=== PATIENT | female | born 1965 | race Caucasian/White ===

== ENCOUNTER 2019-08-07 12:27 | Outpatient (CLI) | payer MEDICARE, MEDICAID, SELFPAY ==
[2019-08-07 14:20] LABS: Basophils Absolute Auto 0.1 K/mm3 (0.0-0.1); Basophils Percent Auto 1.5 % (0.2-1.2); Eosinophils Absolute Auto 0.2 K/mm3 (0-0.3); Eosinophils Percent Auto 3.4 % (0-4.4); Hemoglobin 13.8 g/dL (12.0-15.0); Immature Granulocyte Absolute 0.02 K/mm3 (0.00-0.031); Immature Granulocyte Percent A 0.3 % (0-0.5); Lymphocytes Absolute Auto 1.69 K/mm3 (0.9-3.2); Lymphocytes Percent Auto 27.7 % (18.3-44.2); Mean Corpuscular HGB Conc 32.1 g/dl (32-36); Mean Corpuscular Hemoglobin 30.1 pg (26-34); Mean Corpuscular Volume 93.7 fl (80-100); Mean Platelet Volume 9.7 fl (7.4-10.4); Monocytes Absolute Auto 0.5 K/mm3 (0.1-0.6); Monocytes Percent Auto 7.7 % (2.6-8.5); Neutrophils Absolute Auto 3.6 K/mm3 (1.3-6.7); Neutrophils Percent Auto 59.4 % (45.5-73.1); Platelet Count Result 344 k/mm3 (150-375); Red Blood Count 4.59 M/mm3 (4.2-5.4); White Blood Count 6.1 K/mm3 (4.5-10.0)
[2019-08-07 14:33] LABS: Urine Cotinine NEGATIVE
[2019-08-07 14:34] LABS: Blood Urea Nitrogen 20 mg/dL (7-17); Calcium 9.4 mg/dL (8.4-10.2); Carbon Dioxide 33 mmol/L (22-30); Chloride 96 mmol/L (98-107); Estimated Glomerular Filt Rate > 60; Glucose 127 mg/dL (65-105); Hemoglobin A1C 5.6 % (<5.7); Potassium 3.2 mmol/L (3.4-5.0); Sodium 137 mmol/L (137-145)
== END 2019-08-07 12:28 | disposition home or self-care (01) ==
LOC: ANHSURGERY 12:35
PROVIDERS: Anesthesiology; PCP Family Medicine; Visit Provider Orthopaedic Surgery
DX: M17.11 Unilateral primary osteoarthritis, right knee (principal); Z79.899 Other long term (current) drug therapy
CPT/HCPCS: 36415; 80048; 80307; 83036; 85025; 87081

== ENCOUNTER 2019-08-27 00:57 | Day surgery (SDC) | payer MEDICARE, MEDICAID, SELFPAY ==
[2019-08-07 13:23] VITALS: BP 130/88; PULSE 98; RESP 20; TEMP 37.2; O2SAT 98; BMI 26.8
[2019-08-27] VITALS (9 sets, daily range): BP systolic 114–142; BP diastolic 52–83; PULSE 89–97; RESP 12–18; TEMP 36.3–36.9; O2SAT 94–100
--- NOTE | ~2019-08-27 | XR_ITS ---
EXAMINATION: XR knee RT 2V DATE: 08/27/2019 14:18 INDICATION: Right knee arthroplasty. Postop. TECHNIQUE: 2 views of right knee were obtained. COMPARISON: Right knee radiographs 05/24/2019 FINDINGS: There is a total right knee arthroplasty with patellar resurfacing in near-anatomic alignme nt. No fracture. There is gas in the knee joint and soft tissues, consistent with recent surgery. IMPRESSION: 1. Total right knee arthroplasty in near-anatomic alignment. Reviewed, dictated and finalized at location A. TER MARINE
--- NOTE | 2019-08-27 09:46 | WPDANESEPPF ---
Anes - Initial Pre Proc Eval Procedure: Operation Date: 08/27/19 10:30 Proposed Procedures p Right Total Knee Arthroplasty - Gucci Wilkinson MD Date/Time: 08/27/19 09:46 Surgeon: Gucci Wilkinson MD Pre Op Diagnosis: Right Knee OA Patient Data Age: 54 Gender: F Height: 1.57 m Weight: 65.6 kg Last Vital Signs Temp 37.2 C 08/07/19 13:23 Pulse 98 08/07/19 13:23 Resp 20 08/07/19 13:23 BP 130/88 08/07/19 13:23 Pulse Ox 98 08/07/19 13:23 Allergies Allergy/AdvReac Type Severity Reaction Status Date / Time gadobenic acid AdvReac Other- Verified 08/07/19 13:21 [From contrast - MRI] RASH/HIVES iohexol AdvReac Other-RASH/ Verified 08/07/19 13:21 [From contrast - CT, X-RAY] HIVES Home Medications Medication Instructions Recorded Confirmed Type alprazolam 0.25 mg tablet 0.25 mg PO DAILY 08/07/19 08/16/19 History chlorthalidone 25 mg tablet 25 mg PO DAILY 08/07/19 08/16/19 History famotidine 10 mg tablet 10 mg PO DAILY 08/07/19 08/16/19 History ECG: Date of Service: 06/27/19 Procedure(s): CA 12 lead EKG Accession Number(s): [id number] cc: ~ Measurements Intervals [place] Rate: 79 P: 71 NC: 184 QRS: -9 QRSD: 103 T: 40 QT: 371 QTc: 427 Interpretive Statements SINUS RHYTHM POSSIBLE RIGHT ATRIAL ENLARGEMENT POSSIBLE LEFT ATRIAL ENLARGEMENT BORDERLINE ECG Electronically Signed On 06-27-2019 14:17:41 [employer]UEPRINT PROCESSOR by Harjeet Villavicencio D.O. Dictated By: Harjeet Villavicencio DO 06/27/19 1236 Patient hx anesthesia problems: none Family hx anesthesia problems: none [facility] Social History Social History Smoking status: Former smoker Smoking end date: 07/03/12 Alcohol intake: current Anes - Eval Final PreProcedure Day of Procedure 08/27/19 09:46 Patient weight: overweight Heart: regular rate and rhythm Lungs: clear to auscultation and normal air movement Airway: Mallampati scale class II Neurological: alert and oriented Last oral intake: >/= 8 hours ASA classification: III Emergent: no Anesthetic plan: proceed Anesthesia type and monitoring: general LMA Informed Consent: The patient's anesthetic plan and its attendant risks and benefits were discussed with the patient/family/POA. Questions were solicited and answers provided to the satisfaction of the patient/family/POA.
--- NOTE | 2019-08-27 09:50 | WPDANESPNB ---
Anes - Peripheral Nerve Block Date/Time: 08/27/19 09:50 I have discussed with the patient/family/POA the placement of a peripheral nerve block for post-operative pain management, including associated risks, benefits, complications, and side effects. Alternative methods of post-operative analgesia were detailed. Questions were solicited and answers provided to the satisfaction of the patient/family/POA. Time-Out: A pre-procedural Time-Out was completed immediately before starting the procedure and confirmed: Patient Identification, Site, Procedure, Patient Position and the Availability of Requisite Equipment. Clinical Indications: Acute post-operative pain management requested by the operative surgeon. Nerve Block Insertion Note Anes-nerve block: adductor canal right Patient position: supine Skin prep: chlorhexidine Needle: 22 gauge, stimulating, insulated echogenic needle. Needle length: 80 mm Technique: ultrasound Technique comment: in plane Injectate: bupivacaine 0.5% with epi 5 mcg/ml (30cc) Observations: tolerated well Complications: none Procedure start time:: 1135 Procedure end time:: 1140
[2019-08-27] MEDS: LACTATED RINGERS 1,000 ML 30 ML IV CONT ×2 (10:00→14:10)
--- NOTE | 2019-08-27 11:25 | WPDHPUPDATE1 ---
History and Physical Update Update Date/Time: 08/27/19 11:25 History and Physical has been reviewed, including an updated exam of the patient. There are NO changes in the patient's condition. Risks, benefits, and alternatives have been discussed and questions answered. Patient agrees to proceed with procedure.
[2019-08-27] MEDS: ceFAZolin 2 GM/D5W 50 ML 2 GM/50 ML BAG IVPB (12:02)
[2019-08-27] MEDS: GENTAMICIN BONE CEMENT REFOBACIN 1 EACH TOPICAL (13:17)
--- NOTE | 2019-08-27 14:15 | SUR.PHASEI ---
1410 radiology at bedside to do xrays
--- NOTE | 2019-08-27 14:57 | SUR.PHASEI ---
3290 sbar faxed to floor. family updated and sent to room
--- NOTE | 2019-08-27 15:04 | PCCCNOTE ---
Received call from Dr Wilkinson's office. Pt is intended to be discharged on X[place]. 'Free trial card' given to PACU nurse with instruction to place on chart and to verify with Dr Wilkinson before giving to patient at discharge.
--- NOTE | 2019-08-27 15:10 | PC.NURSE ---
This patient, Manuel Olson, was admitted to 3 [facility] Surg Room 312-01. Patient/family oriented to hospital policies and general routines including ID bracelet, bed and alarms, visiting hours, pain management, procedures, bathroom and other care routines, personal items, smoking policy, room service/diet, and visiting hours. Valuables list has been completed. Information on how to activate the Rapid Response Team has been discussed. Patient/Family are encouraged to report perceived risks to care and to ask questions if they do not understand what they are told or what they should do.
[2019-08-27] MEDS: SODIUM CHLORIDE 0.9% IV 1,000 ML 125 ML IV CONT (15:55)
[2019-08-27] MEDS: DOCUSATE SODIUM 100 MG CAPSULE PO (16:42)
[2019-08-27] MEDS: MELOXICAM 7.5 MG TABLET PO (16:42)
--- NOTE | 2019-08-27 18:07 | P.OP_ITS ---
Procedure Note - Detailed Date of procedure: 08/27/19 Pre-op diagnosis: Right Knee OA Post-op diagnosis: same Procedure performed: Total knee arthroplasty, right Implants: [place] Triathlon size 3 press-fit femur, size 3 cemented low-profile tibia, 11mm CR polyethylene insert, 32mm asymmetric metal backed Tritanium patellar component. Anesthesia: GETA and regional (subsartorial nerve block) Surgeon: Gucci Wilkinson MD Estimated blood loss (mL): 100 Drains: No Complications: None Condition: stable Disposition: PACU Findings: Good bone quality. Moderate medial release required. Femur placed at 3? external rotation. 5 degree valgus cut. OPERATIVE DETAILS: The patient was given a nerve block preoperatively, and then brought to the operating room. A general anesthetic was administered. The leg was prepped and draped in the usual sterile fashion. The limb was elevated and the tourniquet inflated to 300 mmHg during initial exposure. A longitudinal incision was created along the medial border of the patella and patellar tendon, and a minimally invasive optimized mid-vastus approach to the knee was performed. A moderate medial release was taken. The knee was then flexed. The osteophytes were carefully removed. The intramedullary guide was placed in the femoral canal. The distal femoral resection was then taken with the oscillating saw. The collateral ligaments were carefully protected. The tibia was carefully exposed. The jig was applied, and the proximal tibia was resected according to preoperative plan. The knee was balanced in extension. Appropriate releases were taken where needed. The anterior cruciate ligament and meniscal remnants were removed. The posterior cruciate ligament was preserved. The patella was measured. Patellar resection was carried out with the oscillating saw. The lug holes drilled. The femur was sized and rotation assessed using a combination of gap balancing, posterior referencing, and the AP axis. The 4 in 1 cutting block was used to finish the femoral cuts after equal gaps were assured. The lug holes were drilled. The osteophytes were carefully removed from the back of the knee. The knee was copiously irrigated with antibiotic solution periodically throughout the procedure. The meniscal remnants were removed. The spacer block was used to confirm equal flexion and extension gaps. Further releases were performed as needed. The tibia was sized and broached. The bony surfaces were prepared for cementing with pulsatile lavage. The real tibial component was cemented into position followed by press fitting the femoral comp onent. Excess cement was carefully removed. The patella component was press-fit. Patellar tracking was carefully assessed. No additional releases were required. The wound was closed with #1 Vycril suture, #2 Quill suture, 0-Quill suture, and 2-0 Quill suture followed by Steri-Strips. A sterile bulky dressing was applied. Meticulous hemostasis was maintained throughout the procedure. There were no complications. The patient was extubated and brought to the recovery room in stable condition after the application of sterile dressing with Demetrio bandage.
[2019-08-28 02:00] VITALS: BP 116/58; PULSE 89; RESP 18; TEMP 36.8; O2SAT 98
[2019-08-28 05:57] LABS: Basophils Absolute Auto 0.1 K/mm3 (0.0-0.1); Basophils Percent Auto 0.6 % (0.2-1.2); Eosinophils Percent Auto 0.2 % (0-4.4); Hematocrit 35.6 % (37.0-47.0); Hemoglobin 11.6 g/dL (12.0-15.0); Immature Granulocyte Absolute 0.05 K/mm3 (0.00-0.031); Immature Granulocyte Percent A 0.4 % (0-0.5); Lymphocytes Absolute Auto 1.59 K/mm3 (0.9-3.2); Lymphocytes Percent Auto 13.1 % (18.3-44.2); Mean Corpuscular HGB Conc 32.6 g/dl (32-36); Mean Corpuscular Hemoglobin 30.8 pg (26-34); Mean Corpuscular Volume 94.4 fl (80-100); Mean Platelet Volume 9.9 fl (7.4-10.4); Monocytes Percent Auto 8.3 % (2.6-8.5); Neutrophils Absolute Auto 9.4 K/mm3 (1.3-6.7); Neutrophils Percent Auto 77.4 % (45.5-73.1); Platelet Count Result 291 k/mm3 (150-375); Red Blood Count 3.77 M/mm3 (4.2-5.4); Red Cell Distribution Width 12.8 % (11.5-14.5); White Blood Count 12.1 K/mm3 (4.5-10.0)
[2019-08-28 06:00] VITALS: BP 108/54; PULSE 85; RESP 18; TEMP 36.7; O2SAT 98
[2019-08-28 06:19] LABS: Blood Urea Nitrogen 14 mg/dL (7-17); Calcium 8.3 mg/dL (8.4-10.2); Carbon Dioxide 26 mmol/L (22-30); Chloride 101 mmol/L (98-107); Estimated CRCL calculation 79 ml/min; Estimated Glomerular Filt Rate > 60; Glucose 98 mg/dL (65-105); Potassium 4.1 mmol/L (3.4-5.0); Sodium 137 mmol/L (137-145)
[2019-08-28] MEDS: MELOXICAM 7.5 MG TABLET PO (09:08)
[2019-08-28] MEDS: CHLORTHALIDONE 25 MG TABLET PO (09:09)
[2019-08-28] MEDS: FAMOTIDINE 10 MG TABLET PO (09:10)
[2019-08-28] MEDS: DOCUSATE SODIUM 100 MG CAPSULE PO (09:10)
[2019-08-28] MEDS: RIVAROXABAN 10 MG TABLET PO (09:12)
[2019-08-28] MEDS: ALPRAZOLAM 0.25 MG TABLET PO (09:15)
[2019-08-28 10:11] VITALS: O2SAT 98
--- NOTE | 2019-08-28 13:22 | P.DS_ITS ---
DS: Diagnosis Admitting Diagnosis Admitting Diagnosis: Unilateral primary osteoarthritis, right knee Discharge Diagnosis (1) History of arthroplasty of right knee: Code(s): Z96.651 - Presence of right artificial knee joint Status: Acute DS: Summary Hospital Course Reason for hospitalization: Total knee arthroplasty. Hospital Course: Tolerated surgery well. Progressed appropriately with therapy. Status at Discharge Functional status at discharge: uses cane/walker Time Spent with Patient Time attestation: Total time spent providing and/or coordinating discharge services: Exam Const: General: no acute distress Resp: Effort & Inspection: normal respiratory effort Skin: Other: Wound healing well. Mepilex dressing intact. No hematoma or drainage. Neuro: Motor exam (neuro): 5/5 motor strength present throughout Sensory Exam: normal sensation Psych: Mental Status: mental status grossly normal Speech and movement: Normal speech and movement present DS: Data Data Completed and Pending Labs on day of discharge: Labs from last 24 hours 08/28/19 08/28/19 05:21 05:21 WBC 12.1 H RBC 3.77 L Hgb 11.6 L Hct 35.6 L MCV 94.4 MCH 30.8 MCHC 32.6 RDW 12.8 Plt Count 291 MPV 9.9 Immature Gran % (Auto) 0.4 Neut % (Auto) 77.4 H Lymph % (Auto) 13.1 L [place] % (Auto) 8.3 Eos % (Auto) 0.2 Baso % (Auto) 0.6 Lymph # (Auto) 1.59 [place] # (Auto) 1.0 H Eos # (Auto) 0.0 Baso # (Auto) 0.1 Abs Immat Gran (auto) 0.05 H Absolute Neuts (auto) 9.4 H Absolute Nucleated RBC 0.0 Nucleated RBC % 0.0 Sodium 137 Potassium 4.1 Chloride 101 Carbon Dioxide 26 BUN 14 D Creatinine 0.60 L Estim Creat Clear Calc 79 Estimated GFR > 60 Glucose 98 Calcium 8.3 L Discharge Plan Discharge Patient Disposition: Home, Self-Care Discharge Instructions: See instruction sheet. Patient Instructions: Rivaroxaban (By mouth), Pain Management (DC), Precautions after Total Joint Replacement Surgery (DC), Knee Replacement (DC) Follow-up/Referrals: Gucci Wilkinson MD [Physician] - Discharge Medications: New oxycodone-acetaminophen 5-325 mg tablet 1 - 2 tablet PO Q4-6H MDD 8 tablets PRN (Reason: pain) Qty: 40 RF: 0 Xarelto 10 mg tablet 10 mg PO DAILY Qty: 30 RF: 0 Continued chlorthalidone 25 mg tablet 25 mg PO DAILY RF: 0 famotidine 10 mg tablet 10 mg PO DAILY RF: 0 alprazolam [Xanax] 0.25 mg tablet 0.25 mg PO DAILY RF: 0 Quality VTE Prophylaxis VTE prophylaxis: mechanical ordered (MARTÍN lugo and Allie)
--- NOTE | 2019-08-28 13:44 | P.PNAN_ITS ---
Anes - Prog Note Post-Op Date/Time: 08/28/19 13:44 Cardiovascular status: normal Respiratory status: normal Airway patency: baseline Mental status: baseline Post-Op hydration status: normal Vital Signs: Last Vital Signs Temp 36.7 C 08/28/19 06:00 Pulse 85 08/28/19 06:00 Resp 18 08/28/19 06:00 BP 108/54 L 08/28/19 06:00 Pulse Ox 98 08/28/19 10:11 Pain Score (VAS): 0/10. Patient resting up to bedside chair at time of assessment, appears comfortable. Support person at bedside. I/O: Intake & Output 08/27/19 08/28/19 08/28/19 23:59 07:59 15:59 Intake Total 1016 400 760 Output Total 600 Balance 1016 -200 760 Laboratory Tests 08/28/19 05:21 08/28/19 05:21 08/28/19 08/28/19 05:21 05:21 WBC 12.1 H RBC 3.77 L Hgb 11.6 L Hct 35.6 L MCV 94.4 MCH 30.8 MCHC 32.6 RDW 12.8 Plt Count 291 MPV 9.9 Immature Gran % (Auto) 0.4 Neut % (Auto) 77.4 H Lymph % (Auto) 13.1 L [place] % (Auto) 8.3 Eos % (Auto) 0.2 Baso % (Auto) 0.6 Lymph # (Auto) 1.59 [place] # (Auto) 1.0 H Eos # (Auto) 0.0 Baso # (Auto) 0.1 Abs Immat Gran (auto) 0.05 H Absolute Neuts (auto) 9.4 H Absolute Nucleated RBC 0.0 Nucleated RBC % 0.0 Sodium 137 Potassium 4.1 Chloride 101 Carbon Dioxide 26 BUN 14 D Creatinine 0.60 L Estim Creat Clear Calc 79 Estimated GFR > 60 Glucose 98 Calcium 8.3 L Post-procedural complaints: none Patient Feedback: Patient satisfied with anesthetic care.
== END 2019-08-28 15:00 | disposition home or self-care (01) ==
LOC: ANHSURGERY 08:16 → ANH3MEDSUR 15:21
PROVIDERS: PCP Family Medicine; Visit Provider Orthopaedic Surgery
PROC: (CPT 27447; principal; 2019-08-27 10:30)
DX: M17.11 Unilateral primary osteoarthritis, right knee (principal); G89.18 Other acute postprocedural pain; I10 Essential (primary) hypertension; J44.9 Chronic obstructive pulmonary disease, unspecified; K21.9 Gastro-esophageal reflux disease without esophagitis; F41.9 Anxiety disorder, unspecified; Z85.118 Personal history of other malignant neoplasm of bronchus and lung; Z86.718 Personal history of other venous thrombosis and embolism; Z87.891 Personal history of nicotine dependence
CPT/HCPCS: 27447; 64447; 36415; 73560; 80048; 85025; 86850; 86900; 86901; 97116; 97161; 97165; A9270; C1713; C1776; J0131; J0171; J0690; J1100; J1170; J1885; J2250; J2270; J2405; J2704; J2795; J3010; J7030; J7120

== ENCOUNTER 2019-11-19 12:20 | Outpatient (CLI) | payer MEDICARE, MEDICAID, SELFPAY ==
--- NOTE | 2019-11-19 | ECG_ITS ---
Measurements Intervals [place] Rate: 86 P: 72 [place]: 186 QRS: -5 QRSD: 105 T: 53 QT: 370 QTc: 445 Interpretive Statements SINUS RHYTHM POSSIBLE RIGHT ATRIAL ENLARGEMENT LEFT ATRIAL ENLARGEMENT BORDERLINE ECG Electronically Signed On 11-19-2019 13:40:07 CDT by Harjeet Villavicencio D.O.
[2019-11-19 13:10] LABS: Albumin Level 4.3 g/dL (3.5-5.1); Estimated Glomerular Filt Rate > 60
== END 2019-11-19 12:21 | disposition home or self-care (01) ==
PROVIDERS: Visit Provider Orthopaedic Surgery
DX: M17.12 Unilateral primary osteoarthritis, left knee (principal); R94.31 Abnormal electrocardiogram [ECG] [EKG]
CPT/HCPCS: 36415; 82040; 82565; 93005

== ENCOUNTER 2019-12-18 11:37 | Outpatient (CLI) | payer MEDICARE, MEDICAID, SELFPAY ==
[2019-12-18 12:52] LABS: Basophils Absolute Auto 0.1 K/mm3 (0.0-0.1); Basophils Percent Auto 0.9 % (0.2-1.2); Eosinophils Absolute Auto 0.3 K/mm3 (0-0.3); Eosinophils Percent Auto 4.4 % (0-4.4); Hematocrit 41.7 % (37.0-47.0); Hemoglobin 13.6 g/dL (12.0-15.0); Immature Granulocyte Absolute 0.04 K/mm3 (0.00-0.031); Immature Granulocyte Percent A 0.6 % (0-0.5); Lymphocytes Absolute Auto 1.76 K/mm3 (0.9-3.2); Lymphocytes Percent Auto 25.7 % (18.3-44.2); Mean Corpuscular HGB Conc 32.6 g/dl (32-36); Mean Corpuscular Hemoglobin 29.2 pg (26-34); Mean Corpuscular Volume 89.7 fl (80-100); Mean Platelet Volume 9.5 fl (7.4-10.4); Monocytes Absolute Auto 0.6 K/mm3 (0.1-0.6); Monocytes Percent Auto 9.2 % (2.6-8.5); Neutrophils Absolute Auto 4.1 K/mm3 (1.3-6.7); Neutrophils Percent Auto 59.2 % (45.5-73.1); Platelet Count Result 371 k/mm3 (150-375); Red Blood Count 4.65 M/mm3 (4.2-5.4); Red Cell Distribution Width 13.4 % (11.5-14.5); White Blood Count 6.9 K/mm3 (4.5-10.0)
[2019-12-18 13:00] LABS: Urine Cotinine NEGATIVE
[2019-12-18 13:01] LABS: Hemoglobin A1C 5.8 % (<5.7)
[2019-12-18 13:04] LABS: Blood Urea Nitrogen 22 mg/dL (7-17); Calcium 9.1 mg/dL (8.4-10.2); Carbon Dioxide 33 mmol/L (22-30); Chloride 99 mmol/L (98-107); Estimated Glomerular Filt Rate > 60; Glucose 137 mg/dL (65-105); Potassium 3.5 mmol/L (3.4-5.0); Sodium 137 mmol/L (137-145)
== END 2019-12-18 11:38 | disposition home or self-care (01) ==
PROVIDERS: PCP Family Medicine; Visit Provider Orthopaedic Surgery
DX: M17.12 Unilateral primary osteoarthritis, left knee (principal); Z01.812 Encounter for preprocedural laboratory examination; Z51.81 Encounter for therapeutic drug level monitoring; Z79.899 Other long term (current) drug therapy
CPT/HCPCS: 36415; 80048; 80307; 83036; 85025; 87081

== ENCOUNTER 2020-01-04 06:08 | Outpatient (CLI) | payer MEDICARE, MEDICAID, SELFPAY ==
[2020-01-04 17:27] LABS: SARS-CoV-2 RNA PCR Negative
== END 2020-01-04 06:09 | disposition home or self-care (01) ==
LOC: ANHCOVIDDT 06:09
PROVIDERS: Visit Provider Orthopaedic Surgery
DX: Z01.812 Encounter for preprocedural laboratory examination (principal); Z20.828 Contact with and (suspected) exposure to other viral communicable diseases
CPT/HCPCS: 87635; C9803; U0003

== ENCOUNTER 2020-01-07 02:57 | Day surgery (SDC) | payer MEDICARE, MEDICAID, SELFPAY ==
[2019-12-18 12:29] VITALS: BP 112/51; PULSE 96; RESP 16; TEMP 36.8; BMI 26.6
[2020-01-07] VITALS (13 sets, daily range): BP systolic 88–134; BP diastolic 43–87; PULSE 84–99; RESP 12–20; TEMP 36.3–36.7; O2SAT 93–100; BMI 27.2
--- NOTE | ~2020-01-07 | XR_ITS ---
EXAMINATION: XR knee LT 2V DATE: 01/07/2020 09:43 INDICATION: Total left knee arthroplasty. Postop. TECHNIQUE: 2 views of left knee were obtained. COMPARISON: Left knee radiograph 12/18/2019, 05/24/2019 FINDINGS: There is a total left knee arthroplasty with patellar resurfacing. Tibia demonstrate 7 degr ees posterior attenuation with respect to the tibial component. No fracture. There is gas in the knee joint and soft tissues, consistent with recent surgery. A curvilinear density in the shape of a wire overlies the soft tissues posterior to the proximal tibia, unchanged from 05/24/2019. IMPRESSION: 1. New total left knee arthroplasty. 2. Chronic radiopaque foreign body in the shape of a wire in the soft tissues posterior to the proxim al tibia. Reviewed, dictated and finalized at location A. IMPRESSION: 1. New total left knee arthroplasty. 2. Chronic radiopaque foreign body in the shape of a wire in the soft tissues p osterior to the proximal tibia.
[2020-01-07] MEDS: LACTATED RINGERS 1,000 ML 30 ML IV CONT ×2 (06:25→09:25)
[2020-01-07] MEDS: TRANEXAMIC ACID 1,000MG/ISO100 1,000 MG/100 ML BAG 200 MG IVPB (06:40)
--- NOTE | 2020-01-07 06:42 | WPDANESEPPF ---
Anes - Initial Pre Proc Eval Procedure: Operation Date: 01/07/20 07:30 Proposed Procedures p Left Total Knee Arthroplasty - Gucci Wilkinson MD Date/Time: 01/07/20 06:42 Surgeon: Gucci Wilkinson MD Pre Op Diagnosis: left knee OA Patient Data Age: 54 Gender: F Height: 5 ft 3 in Weight: 68.1 kg Last Vital Signs Temp 36.8 C 12/18/19 12:29 Pulse 96 12/18/19 12:29 Resp 16 12/18/19 12:29 BP 112/51 L 12/18/19 12:29 Allergies Allergy/AdvReac Type Severity Reaction Status Date / Time gadobenic acid AdvReac Hives Verified 01/07/20 06:41 [From contrast - MRI] iohexol AdvReac Hives Verified 01/07/20 06:41 [From contrast - CT, X-RAY] Home Medications Medication Instructions Recorded Confirmed Type alprazolam 0.25 mg tablet 0.25 mg PO PRN PRN 08/07/19 01/07/20 History chlorthalidone 25 mg tablet 25 mg PO DAILY 08/07/19 01/07/20 History famotidine 10 mg tablet 10 mg PO DAILY 08/07/19 01/07/20 History multivitamin [Multiple Vitamins] 1 tablet PO DAILY 12/18/19 01/07/20 History Patient hx anesthesia problems: none Family hx anesthesia problems: none PMFSH Past Medical History Medical History Anxiety COPD (chronic obstructive pulmonary disease) History of DVT (deep vein thrombosis) History of lung cancer Hypertension Mild acid reflux Osteoarthritis of left knee Osteoarthritis of right knee Surgical History Surgical History 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 History of appendectomy History of arthroplasty of right knee History of evisceration of eye Status post trigger finger release Family History Family History Other Family history of arthritis Family history of malignant neoplasm Social History Social History Smoking packs per day: 1 Smoking cigarettes per day: 20.0 Smoking status: Former smoker Tobacco type: cigarettes Second hand tobacco smoke exposure: Yes Smoking end date: 09/02/15 Alcohol intake: current Drinks per week: 1 Substance use: never Gender identity (if verbalized by the patient): Female Spiritual care concerns: No Agree to blood products: Yes Anes - Eval Final PreProcedure Day of Procedure 01/07/20 06:42 Patient weight: overweight Heart: regular rate and rhythm Lungs: decreased breath sounds Airway: Mallampati scale class II Neurological: alert and oriented Last oral intake: >/= 8 hours ASA classification: III Emergent: no Anesthetic plan: proceed Anesthesia type and monitoring: general LMA and standard monitoring Informed Consent: The patient's anesthetic plan and its attendant risks and benefits were discussed with the patient/family/POA. Questions were solicited and answers provided to the satisfaction of the patient/family/POA.
--- NOTE | 2020-01-07 07:06 | WPDHPUPDATE1 ---
History and Physical Update Update Date/Time: 01/07/20 07:06 History and Physical has been reviewed, including an updated exam of the patient. There are NO changes in the patient's condition. Risks, benefits, and alternatives have been discussed and questions answered. Patient agrees to proceed with procedure.
[2020-01-07] MEDS: ceFAZolin 2 GM/D5W 50 ML 2 GM/50 ML BAG IVPB (07:21)
--- NOTE | 2020-01-07 07:23 | WPDANESPNB ---
Anes - Peripheral Nerve Block Date/Time: 01/07/20 07:23 I have discussed with the patient/family/POA the placement of a peripheral nerve block for post-operative pain management, including associated risks, benefits, complications, and side effects. Alternative methods of post-operative analgesia were detailed. Questions were solicited and answers provided to the satisfaction of the patient/family/POA. Time-Out: A pre-procedural Time-Out was completed immediately before starting the procedure and confirmed: Patient Identification, Site, Procedure, Patient Position and the Availability of Requisite Equipment. Clinical Indications: Acute post-operative pain management requested by the operative surgeon. Nerve Block Insertion Note Anes-nerve block: adductor canal left Patient position: supine Skin prep: chlorhexidine Needle: 22 gauge, stimulating, insulated echogenic needle. Needle length: 80 mm Technique: ultrasound Technique comment: mid 2mg, [id number] Injectate: bupivacaine 0.5% with epi 5 mcg/ml (30ml) and dexamethasone (mg) (4) Observations: tolerated well Complications: none Procedure start time:: 711 Procedure end time:: 719
[2020-01-07] MEDS: GENTAMICIN BONE CEMENT REFOBACIN 1 EACH TOPICAL (08:07)
--- NOTE | 2020-01-07 09:39 | SUR.PHASEI ---
Radiology here; xray Left knee
--- NOTE | 2020-01-07 09:44 | SUR.PHASEI ---
Updated sig other Chris Agustin [phone] and gave him pt's room number
--- NOTE | 2020-01-07 09:49 | PM.PROC ---
Procedure Note - Detailed Date of procedure: 01/07/20 Pre-op diagnosis: left knee OA Post-op diagnosis: same Procedure performed: Total knee arthroplasty, left. Implants: [place] Triathlon size 2 press-fit femur, size 2 cemented low-profile tibia, 11 mm polyethylene insert, 32 mm asymmetric metal backed Tritanium patellar component. Anesthesia: GETA and regional (subsartorial nerve block) Surgeon: Gucci Wilkinson MD Drains: No Complications: None Findings: OPERATIVE DETAILS: The patient was given a nerve block preoperatively, and then brought to the operating room. A general anesthetic was administered. The leg was prepped and draped in the usual sterile fashion. The limb was elevated and the tourniquet inflated to 300 mmHg during initial exposure. A longitudinal incision was created along the medial border of the patella and patellar tendon, and a minimally invasive optimized mid-vastus approach to the knee was performed. A mild medial release was taken. The knee was then flexed. The osteophytes were carefully removed. The intramedullary guide was placed in the femoral canal. The distal femoral resection was then taken with the oscillating saw. The collateral ligaments were carefully protected. The tibia was carefully exposed. The jig was applied, and the proximal tibia was resected according to preoperative plan. The knee was balanced in extension. Appropriate releases were taken where needed. The anterior cruciate ligament and meniscal remnants were removed. The posterior cruciate ligament was preserved. The patella was measured. Patellar resection was carried out with the oscillating saw. The lug holes drilled. The femur was sized and rotation assessed using a combination of gap balancing, posterior referencing, and the AP axis. The 4 in 1 cutting block was used to finish the femoral cuts after equal gaps were assured. The lug holes were drilled. The osteophytes were carefully removed from the back of the knee. The knee was copiously irrigated with antibiotic solution periodically throughout the procedure. The meniscal remnants were removed. The spacer block was used to confirm equal flexion and extension gaps. Further releases were performed as needed. A modest needle release was performed medially. The final balance was excellent. The tibia was sized and broached. The bony surfaces were prepared for cementing with pulsatile lavage. The real tibial component was cemented into position followed by press fitting the femoral component. Excess cement was carefully removed. The patella component was press-fit. Patellar tracking was carefully assessed. No additional releases were required. The wound was closed with #1 Vycril suture, #2 Quill suture, 0-Quill suture, and 2-0 Quill suture followed by Steri-Strips. A sterile bulky dressing was applied. Meticulous hemostasis was maintained throughout the procedure. There were no complications. The patient was extubated and brought to the recovery room in stable condition after the application of sterile dressing with Demetrio bandage.
[2020-01-07] MEDS: SODIUM CHLORIDE 0.9% IV 1,000 ML 125 ML IV CONT (13:35)
[2020-01-07] MEDS: KETOROLAC 15 MG/ML VIAL (*BKC) IV PUSH ×2 (14:54→21:18)
[2020-01-07] MEDS: DOCUSATE SODIUM 100 MG CAPSULE PO (17:53)
[2020-01-08 01:25] VITALS: BP 108/50; PULSE 89; RESP 20; TEMP 36.1; O2SAT 99
[2020-01-08] MEDS: KETOROLAC 15 MG/ML VIAL (*BKC) IV PUSH ×2 (02:52→08:56)
[2020-01-08 05:25] VITALS: BP 127/57; PULSE 82; RESP 20; TEMP 36.1; O2SAT 98
[2020-01-08 05:28] LABS: Basophils Absolute Auto 0.1 K/mm3 (0.0-0.1); Basophils Percent Auto 0.4 % (0.2-1.2); Eosinophils Percent Auto 0.1 % (0-4.4); Hematocrit 34.4 % (37.0-47.0); Hemoglobin 11.2 g/dL (12.0-15.0); Immature Granulocyte Absolute 0.07 K/mm3 (0.00-0.031); Immature Granulocyte Percent A 0.5 % (0-0.5); Lymphocytes Absolute Auto 2.04 K/mm3 (0.9-3.2); Lymphocytes Percent Auto 14.4 % (18.3-44.2); Mean Corpuscular HGB Conc 32.6 g/dl (32-36); Mean Corpuscular Hemoglobin 29.9 pg (26-34); Mean Corpuscular Volume 91.7 fl (80-100); Mean Platelet Volume 9.3 fl (7.4-10.4); Monocytes Absolute Auto 1.1 K/mm3 (0.1-0.6); Monocytes Percent Auto 7.5 % (2.6-8.5); Neutrophils Percent Auto 77.1 % (45.5-73.1); Platelet Count Result 304 k/mm3 (150-375); Red Blood Count 3.75 M/mm3 (4.2-5.4); Red Cell Distribution Width 13.4 % (11.5-14.5); White Blood Count 14.2 K/mm3 (4.5-10.0)
[2020-01-08 05:43] LABS: Blood Urea Nitrogen 14 mg/dL (7-17); Calcium 8.4 mg/dL (8.4-10.2); Carbon Dioxide 26 mmol/L (22-30); Chloride 106 mmol/L (98-107); Estimated CRCL calculation 83 ml/min; Estimated Glomerular Filt Rate > 60; Glucose 102 mg/dL (65-105); Potassium 3.9 mmol/L (3.4-5.0); Sodium 137 mmol/L (137-145)
[2020-01-08 06:00] VITALS: BP 127/57; PULSE 98; RESP 20; TEMP 36.1; O2SAT 98
[2020-01-08] MEDS: DOCUSATE SODIUM 100 MG CAPSULE PO (08:56)
[2020-01-08] MEDS: CHLORTHALIDONE 25 MG TABLET PO (08:56)
[2020-01-08] MEDS: FAMOTIDINE 10 MG TABLET PO (08:56)
[2020-01-08] MEDS: MULTIVITAMINS THERAPEUTIC TAB (*BKC) 1 TABLET PO (08:57)
[2020-01-08 09:25] VITALS: BP 104/42; PULSE 60; RESP 14; TEMP 36.6; O2SAT 98
[2020-01-08 09:42] VITALS: O2SAT 98
--- NOTE | 2020-01-08 09:54 | P.PNAN_ITS ---
Anes - Prog Note Post-Op Date/Time: 01/08/20 09:54 Cardiovascular status: normal Respiratory status: normal Airway patency: baseline Mental status: baseline Post-Op hydration status: normal Vital Signs: Last Vital Signs Temp 97 F L 01/08/20 06:00 Pulse 98 01/08/20 06:00 Resp 20 01/08/20 06:00 BP 127/57 L 01/08/20 06:00 Pulse Ox 98 01/08/20 09:42 I/O: Intake & Output 01/07/20 01/08/20 01/08/20 23:59 07:59 15:59 Intake Total 1930 490 480 Output Total 750 800 Balance 1180 -310 480 Laboratory Tests 01/08/20 05:04 01/08/20 05:04 01/08/20 01/08/20 05:04 05:04 WBC 14.2 H RBC 3.75 L Hgb 11.2 L Hct 34.4 L MCV 91.7 MCH 29.9 MCHC 32.6 RDW 13.4 Plt Count 304 MPV 9.3 Immature Gran % (Auto) 0.5 Neut % (Auto) 77.1 H Lymph % (Auto) 14.4 L [place] % (Auto) 7.5 Eos % (Auto) 0.1 Baso % (Auto) 0.4 Lymph # (Auto) 2.04 [place] # (Auto) 1.1 H Eos # (Auto) 0.0 Baso # (Auto) 0.1 Abs Immat Gran (auto) 0.07 H Absolute Neuts (auto) 11.0 H Absolute Nucleated RBC 0.0 Nucleated RBC % 0.0 Sodium 137 Potassium 3.9 Chloride 106 Carbon Dioxide 26 BUN 14 D Creatinine 0.60 L Estim Creat Clear Calc 83 Estimated GFR > 60 Glucose 102 Calcium 8.4 Post-procedural complaints: none Patient Feedback: Patient satisfied with anesthetic care. continued pain relief from PNB
[2020-01-08] MEDS: RIVAROXABAN 10 MG TABLET PO (10:06)
--- NOTE | 2020-01-08 10:58 | PM.DS ---
DS: Admitting Diagnosis Admitting Diagnosis Admitting Diagnosis: Unilateral primary osteoarthritis, left knee DS: Discharge Diagnosis Discharge Diagnosis (1) Presence of left artificial knee joint: Code(s): Z96.652 - Presence of left artificial knee joint Status: Acute DS: Summary Hospital Course Reason for hospitalization: Total knee arthroplasty. Hospital Course: Tolerated surgery well. Progressed appropriately with therapy. Status at Discharge Functional status at discharge: uses cane/walker Time Spent with Patient Time attestation: Total time spent providing and/or coordinating discharge services: Exam Const: General: no acute distress Resp: Effort & Inspection: normal respiratory effort Skin: Other: Wound healing well. Mepilex dressing intact. No hematoma or drainage. Neuro: Motor exam (neuro): 5/5 motor strength present throughout Sensory Exam: normal sensation Psych: Mental Status: mental status grossly normal Speech and movement: Normal speech and movement present DS: Data Data Completed and Pending Labs on day of discharge: Labs from last 24 hours 01/08/20 01/08/20 05:04 05:04 WBC 14.2 H RBC 3.75 L Hgb 11.2 L Hct 34.4 L MCV 91.7 MCH 29.9 MCHC 32.6 RDW 13.4 Plt Count 304 MPV 9.3 Immature Gran % (Auto) 0.5 Neut % (Auto) 77.1 H Lymph % (Auto) 14.4 L [place] % (Auto) 7.5 Eos % (Auto) 0.1 Baso % (Auto) 0.4 Lymph # (Auto) 2.04 [place] # (Auto) 1.1 H Eos # (Auto) 0.0 Baso # (Auto) 0.1 Abs Immat Gran (auto) 0.07 H Absolute Neuts (auto) 11.0 H Absolute Nucleated RBC 0.0 Nucleated RBC % 0.0 Sodium 137 Potassium 3.9 Chloride 106 Carbon Dioxide 26 BUN 14 D Creatinine 0.60 L Estim Creat Clear Calc 83 Estimated GFR > 60 Glucose 102 Calcium 8.4 Discharge Plan Discharge Patient Disposition: Home, Self-Care Discharge Instructions: See instruction sheet. Patient Instructions: Rivaroxaban (By mouth) Follow-up/Referrals: Gucci Wilkinson MD [Physician] - Discharge Medications: New Xarelto 10 mg Tablet 10 mg PO Q24H 28 Days Qty: 28 RF: 0 oxycodone-acetaminophen 5-325 mg tablet 1 - 2 tablet PO Q4-6H MDD 8 tablets PRN (Reason: pain) Qty: 40 RF: 0 Continued chlorthalidone 25 mg tablet 25 mg PO DAILY RF: 0 famotidine 10 mg tablet 10 mg PO DAILY RF: 0 alprazolam [Xanax] 0.25 mg tablet 0.25 mg PO PRN PRN (Reason: Anxiety) RF: 0 multivitamin [Multiple Vitamins] Tablet 1 tablet PO DAILY RF: 0 Quality VTE Prophylaxis VTE prophylaxis: mechanical ordered (MARTÍN lugo and Allie)
== END 2020-01-08 12:32 | disposition home or self-care (01) ==
LOC: ANHSURGERY 06:32 → ANH2MED 11:51
PROVIDERS: PCP Family Medicine; Visit Provider Orthopaedic Surgery
PROC: (CPT 27447; principal; 2020-01-07 07:30)
DX: M17.12 Unilateral primary osteoarthritis, left knee (principal); G89.18 Other acute postprocedural pain; I10 Essential (primary) hypertension; J44.9 Chronic obstructive pulmonary disease, unspecified; K21.9 Gastro-esophageal reflux disease without esophagitis; Z86.718 Personal history of other venous thrombosis and embolism; Z85.118 Personal history of other malignant neoplasm of bronchus and lung; Z87.891 Personal history of nicotine dependence
CPT/HCPCS: 27447; 64447; 36415; 73560; 80048; 85025; 86850; 86900; 86901; 97110; 97116; 97161; 97165; A9270; C1713; C1776; J0131; J0171; J0690; J1100; J1170; J1885; J2250; J2270; J2405; J2704; J2795; J3010; J7030; J7120